=== PATIENT | male | born 1935 | race Two or more races ===

== ENCOUNTER 2021-02-26 20:34 | Inpatient (IN) | payer OTHER ==
[~2021-02-26] VITALS: Ht 157.5 cm; Wt 56.2 kg
[2021-03-23] MEDS ORDERED: BAYER THERAPY325 MG PO (16:25)
[2021-03-23] MEDS ORDERED: OMEGA-3 ACID ETH1 GM PO (16:25)
[2021-03-23] MEDS ORDERED: VITAMIN D3125 MC2 PO (16:25)
[2021-03-23] MEDS ORDERED: FAMOTIDINE20 MG PO (16:25)
[2021-03-23] MEDS ORDERED: INTESTINEX680 M1 PO (16:25)
[2021-03-23] MEDS ORDERED: VITAMIN C500 M1 PO (16:25)
[2021-03-23] MEDS ORDERED: ZINC SULFATE50 M1 PO (16:25)
[2021-03-23] MEDS ORDERED: MELATONIN5 M2 PO (16:25)
[2021-03-23] MEDS ORDERED: Proventyl Hfa 90MG P IH (16:25)
[2021-03-23] MEDS ORDERED: MEDROLPACK PO (16:26)
== END 2021-03-23 23:49 | disposition home health service (06) | DRG 177 ==
LOC: ER 20:34 → SEC-K 02-27 13:11 → MEDJ 02-27 13:11
PROVIDERS: ADMIT Internal Medicine; ATTEND Internal Medicine
PROC: 4A033R1 Measurement of Arterial Saturation, Peripheral, Percutaneous Approach (ICD-10-PCS; principal; 2021-02-27)
PROC: 8E0ZXY6 Isolation (ICD-10-PCS; 2021-02-27)
PROC: 3E0F7SF Introduction of Other Gas into Respiratory Tract, Via Natural or Artificial Opening (ICD-10-PCS; 2021-02-27)
PROC: XW033E5 Introduction of Remdesivir Anti-infective into Peripheral Vein, Percutaneous Approach, New Technology Group 5 (ICD-10-PCS; 2021-02-27)
PROC: 4A12X4Z Monitoring of Cardiac Electrical Activity, External Approach (ICD-10-PCS; 2021-02-27)
PROC: 5A09457 Assistance with Respiratory Ventilation, 24-96 Consecutive Hours, Continuous Positive Airway Pressure (ICD-10-PCS; 2021-03-04)
DX: U07.1 COVID-19 (principal); J12.82 Pneumonia due to coronavirus disease 2019; J96.01 Acute respiratory failure with hypoxia; E87.0 Hyperosmolality and hypernatremia; N39.0 Urinary tract infection, site not specified; Z20.822 Contact with and (suspected) exposure to COVID-19; E86.0 Dehydration; Z53.29 Procedure and treatment not carried out because of patient's decision for other reasons; B95.7 Other staphylococcus as the cause of diseases classified elsewhere